=== PATIENT | female | born 1950 | race Caucasian/White ===

== ENCOUNTER 2017-10-24 08:29 | Day surgery (SDC) | payer OTHER ==
[~2017-10-24 08:29] MED LIST: BETAMET ACET/BETAMET NA PH 30 MG/5 ML VIAL IM ONE; BUPIVACAINE HCL/PF 0.25% (2.5MG/ML) 10 ML VIAL IJ ONE; IOHEXOL 180 MG/1 ML ML IJ ONE; LIDOCAINE HCL 1%, 10 MG/ML (20ML VIAL) INF ONE
[2017-10-24] MEDS ORDERED: BUPIVACAINE HCL/PF 0.25% (2.5MG/ML) 10 ML VIAL ONE (09:28)
[2017-10-24] MEDS ORDERED: LIDOCAINE HCL 1%, 10 MG/ML (20ML VIAL) ONE (09:28)
[2017-10-24] MEDS ORDERED: BETAMET ACET/BETAMET NA PH 30 MG/5 ML VIAL ONE (09:28)
[2017-10-24 10:37] VITALS: TEMP 98.3
[2017-10-24] MEDS ORDERED: PROPOFOL 20 ML ONE ×2 (11:18)
[2017-10-24] MEDS ORDERED: MIDAZOLAM HCL 2 MG/2 ML SINGLE DOSE VIAL ONE (11:18)
[2017-10-24] MEDS ORDERED: LIDOCAINE HCL 1%, 10 MG/ML (20ML VIAL) INF ONE (11:25)
[2017-10-24] MEDS ORDERED: IOHEXOL 180 MG/1 ML ML IJ ONE (11:27)
[2017-10-24] MEDS ORDERED: BUPIVACAINE HCL/PF 0.25% (2.5MG/ML) 10 ML VIAL IJ ONE (11:30)
[2017-10-24] MEDS ORDERED: BETAMET ACET/BETAMET NA PH 30 MG/5 ML VIAL IM ONE (11:30)
[2017-10-24 13:21] VITALS: BP 135/77; PULSE 89
--- NOTE | 2017-11-18 10:04 | PROC ---
Procedure Note Procedure: Date of service: 10/24/2017 Preoperative Diagnosis: Low back pain and lumbar radiculopathy on right Postoperative Diagnosis: Same Procedure Performed: Lumbar Epidural Steroid Injection (LESI) on Right L5-S1 with dye under Fluoroscopy Anesthesia: Local / MAC Anesthesiologist: Procedure: I discussed with the patient in detail about the risks, benefits, and alternatives to treatment not only limited to infection, headache, numbness , weakness, and injury to nerves, blood vessels and muscles. The patient understood, agreed and signed the written consent. The patient was placed in the prone position with the head, abdomen and legs supported with the pillows. The lumbosacral area was prepped and draped with Betadine times three in a sterile fashion. Lumbar vertebrae were identified under the C-arm. At L5-S1 level on the right side, 3 ml of 1 % Lidocaine was infiltrated into the skin and subcutaneous tissue. A 3 inch, #20 gauge Tuohy needle was advanced to the epidural space with loss of resistance technique under fluoroscopic guidance. Aspiration was negative for cerebrospinal fluid and blood. 2ml of Omnipaque ( radio-opaque dye) was injected to confirm the tip of the needle into epidural space and spread of dye. There was no CSF or vascular spread. The spread of dye was noted cranially and caudally on epidurogram. Aspiration was done again which was negative. A solution of 2.5 ml of Celestone and 2.5 ml of 0.25% Marcaine and 2 ml of preservative-free Normal Saline and a total of 5 ml was injected slowly. While Tuohy needle was withdrawn 2.0 ml of 1 % Lidocaine was infiltrated. Bleeding was checked. Betadine was wiped off. A sterile bandage was placed. The patient tolerated the procedure well. There were no immediate complications. The patient was transferred to the recovery room. The patient was observed for some time and discharged as per ASU criteria. The patient was told to apply ice at the injection site. Follow up appointment was given and also call my office at [phone]. If there is any problem, call my office or report to Emergency Room. Efra Wilkins M.D.
== END 2017-10-24 13:23 | disposition home or self-care (01) ==
LOC: JASU-SURG 08:29 → JASU-ENDO 08:29 → JASU-SURG 13:23
PROVIDERS: ATTEND Physical Medicine & Rehabilitation
PROC: 3E0R33Z Introduction of Anti-inflammatory into Spinal Canal, Percutaneous Approach (ICD-10-PCS; 2017-10-24)
PROC: B01BYZZ Fluoroscopy of Spinal Cord using Other Contrast (ICD-10-PCS; 2017-10-24)
PROC: 3E0R3BZ Introduction of Anesthetic Agent into Spinal Canal, Percutaneous Approach (ICD-10-PCS; principal; 2017-10-24 09:30)
DX: M54.16 Radiculopathy, lumbar region (principal); M54.5 Low back pain
CPT/HCPCS: 72148-TC; 76000-TC-FY

== ENCOUNTER 2017-11-17 07:08 | Day surgery (SDC) | payer OTHER ==
[2017-11-16 14:40] VITALS: BMI 36.0
[2017-11-17] MEDS ORDERED: PROPOFOL 20 ML ONE ×3 (08:02)
[2017-11-17] MEDS ORDERED: LIDOCAINE HCL/PF 1% SDV 5ML VIAL ONE (08:03)
[2017-11-17 09:16] VITALS: TEMP 97.8
[2017-11-17 14:09] VITALS: BP 119/61; PULSE 88
== END 2017-11-17 11:45 | disposition home or self-care (01) ==
LOC: JASU-ENDO 07:08
PROVIDERS: ATTEND Internal Medicine Gastroenterology
PROC: 0DBM8ZX Excision of Descending Colon, Via Natural or Artificial Opening Endoscopic, Diagnostic (ICD-10-PCS; principal; 2017-11-17 08:00)
DX: Z11.1 Encounter for screening for respiratory tuberculosis (principal); Z80.0 Family history of malignant neoplasm of digestive organs; Z53.8 Procedure and treatment not carried out for other reasons
CPT/HCPCS: 74270-TC-FY; 87045; 87046; 87177; 87209; 88305-TC

== ENCOUNTER 2017-12-26 07:11 | Day surgery (SDC) | payer OTHER ==
[2017-12-06 18:02] VITALS: BMI 36.0
[2017-12-26] MEDS ORDERED: ePHEDrine SULFATE 50 MG/1 ML AMPULE ONE (07:18)
[2017-12-26] MEDS ORDERED: PROPOFOL 20 ML ONE ×10 (07:19)
[2017-12-26] MEDS ORDERED: SUCCINYLCHOLINE CHLORIDE 200 MG/10 ML VIAL ONE (07:19)
[2017-12-26] MEDS ORDERED: LIDOCAINE HCL 1%, 10 MG/ML (20ML VIAL) ONE (07:33)
[2017-12-26] MEDS ORDERED: BETAMET ACET/BETAMET NA PH 30 MG/5 ML VIAL ONE (07:34)
[2017-12-26] MEDS ORDERED: BUPIVACAINE HCL/PF 0.25% (2.5MG/ML) 10 ML VIAL ONE (07:34)
[2017-12-26 07:41] VITALS: TEMP 97.7
[2017-12-26] MEDS ORDERED: LIDOCAINE HCL 1%, 10 MG/ML (20ML VIAL) NR ONE (08:41)
[2017-12-26] MEDS ORDERED: IOHEXOL 180 MG/1 ML ML IJ ONE ×2 (08:44)
[2017-12-26] MEDS ORDERED: BETAMET ACET/BETAMET NA PH 30 MG/5 ML VIAL IJ ONE ×2 (08:44)
[2017-12-26] MEDS ORDERED: BUPIVACAINE HCL/PF 0.25% (2.5MG/ML) 10 ML VIAL IJ ONE ×2 (08:44)
[2017-12-26 11:17] VITALS: BP 126/72; PULSE 93
--- NOTE | 2017-12-27 21:39 | PROC ---
Procedure Note Procedure: Date of service: 12/26/2017 Preoperative Diagnosis: Low back pain and lumbar radiculopathy on Left, Lumbar facet arthropathy. Postoperative Diagnosis: Same Procedure Performed: Lumbar Epidural Steroid Injection (LESI) on Left L4-5 and left L4-S1 facet intra-articular injection. with dye under Fluoroscopy Anesthesia: Local / MAC Anesthesiologist: Procedure: I discussed with the patient in detail about the risks, benefits, and alternatives to treatment not only limited to infection, headache, numbness , weakness, and injury to nerves, blood vessels and muscles. The patient understood, agreed and signed the written consent. The patient was placed in the prone position with the head, abdomen and legs supported with the pillows. The lumbosacral area was prepped and draped with Betadine times three in a sterile fashion. Lumbar vertebrae were identified under the C-arm. At L4-5 level on the Left side, 3 ml of 1 % Lidocaine was infiltrated into the skin and subcutaneous tissue. A 3 inch, #20 gauge Tuohy needle was advanced to the epidural space with loss of resistance technique under fluoroscopic guidance. Aspiration was negative for cerebrospinal fluid and blood. 2ml of Omnipaque ( radio-opaque dye) was injected to confirm the tip of the needle into epidural space and spread of dye. There was no CSF or vascular spread. The spread of dye was noted cranially and caudally on epidurogram. Aspiration was done again which was negative. A solution of 2.5 ml of Celestone, 3.5 ml of 0.25% Marcaine and a total of 4 ml was injected slowly. While Tuohy needle was withdrawn 2.0 ml of 1 % Lidocaine was infiltrated. Left intra-articular L4-5 amd L5-S1 with 1 ml each of solution was done after confirming the placement of needle with contrast both in AP and oblique views. Bleeding was checked. Betadine was wiped off. A sterile bandage was placed. The patient tolerated the procedure well. There were no immediate complications. The patient was transferred to the recovery room. The patient was observed for some time and discharged as per ASU criteria. The patient was told to apply ice at the injection site. Follow up appointment was given and also call my office at [phone]. If there is any problem, call my office or report to Emergency Room. Efra Wilkins M.D.
== END 2017-12-26 11:00 | disposition home or self-care (01) ==
LOC: JASU-SURG 07:11
PROVIDERS: ATTEND Physical Medicine & Rehabilitation
PROC: 3E0R3BZ Introduction of Anesthetic Agent into Spinal Canal, Percutaneous Approach (ICD-10-PCS; 2017-12-26)
PROC: B01BYZZ Fluoroscopy of Spinal Cord using Other Contrast (ICD-10-PCS; 2017-12-26)
PROC: 3E0R33Z Introduction of Anti-inflammatory into Spinal Canal, Percutaneous Approach (ICD-10-PCS; principal; 2017-12-26 08:00)
DX: M54.16 Radiculopathy, lumbar region (principal); M54.5 Low back pain; M12.88 Other specific arthropathies, not elsewhere classified, other specified site
CPT/HCPCS: 76000-TC-FY

== ENCOUNTER 2018-06-14 07:48 | Day surgery (SDC) | payer OTHER ==
[2018-06-13 16:55] VITALS: BMI 30.5
[2018-06-14] MEDS ORDERED: BUPIVACAINE HCL/PF 0.25% (2.5MG/ML) 10 ML VIAL ONE (08:52)
[2018-06-14] MEDS ORDERED: BUPIVACAINE HCL/PF 0.5% (5MG/ML) 10 ML VIAL ONE (08:52)
[2018-06-14] MEDS ORDERED: LIDOCAINE HCL 1%, 10 MG/ML (20ML VIAL) ONE (08:52)
[2018-06-14 09:03] LABS: HEMATOCRIT 39.9 % (32.4-45.2); HEMOGLOBIN 14.4 GM/dL (10.7-15.3); MCHC 36.1 g/dl (32.0-36.0); MEAN CELL VOLUME 83.2 fl (80-96); MEAN PLT VOLUME 7.4 fl (7.5-11.1); PLATELET COUNT 243 K/MM3 (134-434); RBC 4.79 M/mm3 (3.60-5.2); WHITE BLOOD COUNT 6.4 K/mm3 (4.0-10.0)
[2018-06-14] MEDS ORDERED: PROPOFOL 20 ML ONE (09:16)
[2018-06-14] MEDS ORDERED: LIDOCAINE HCL/PF 2% SDV 5ML VIAL ONE (09:17)
[2018-06-14] MEDS ORDERED: LIDOCAINE HCL 1%, 10 MG/ML (50 mL VIAL) IJ ONE ×2 (09:31→09:33)
[2018-06-14] MEDS ORDERED: BUPIVACAINE HCL/PF 0.25% (2.5MG/ML) 10 ML VIAL IJ ONE ×2 (09:31→09:36)
[2018-06-14] MEDS ORDERED: IOHEXOL 180 MG/1 ML ML IJ ONE ×2 (09:31→09:35)
[2018-06-14] MEDS ORDERED: BETAMET ACET/BETAMET NA PH 30 MG/5 ML VIAL IJ ONE ×2 (09:32→09:36)
[2018-06-14 09:38] LABS: ALBUMIN 3.8 g/dl (3.4-5.0); ALK PHOS 79 U/L (45-117); ANION GAP 8 MMOL/L (8-16); BILIRUBIN,DIRECT 0.2 mg/dL (0.0-0.2); BILIRUBIN,TOTAL 0.9 mg/dL (0.2-1); BLOOD UREA NITROGEN 17 mg/dL (7-18); CALCIUM 8.7 mg/dL (8.5-10.1); CHLORIDE 107 mmol/L (98-107); CHOLESTEROL 190 mg/dL (50-200); CO2 25 mmol/L (21-32); CREATININE 0.7 mg/dL (0.55-1.3); GLUCOSE,RANDOM 109 mg/dL (74-106); HDL CHOLESTEROL 38 mg/dL (40-60); SGOT/AST 20 U/L (15-37); SGPT/ALT 33 U/L (13-61); SODIUM 139 mmol/L (136-145); TRIGLYCERIDES 208 mg/dL (0-150)
--- NOTE | 2018-06-14 10:11 | PROC ---
Procedure Note Procedure: Date of service:06/14/2018 Preoperative Diagnosis: Low back pain and lumbar radiculopathy on Left Postoperative Diagnosis: Same Procedure Performed: Lumbar Epidural Steroid Injection (LESI) on Left L4-5 with dye under Fluoroscopy Anesthesia: Local / MAC Anesthesiologist: Procedure: I discussed with the patient in detail about the risks, benefits, and alternatives to treatment not only limited to infection, headache, numbness , weakness, and injury to nerves, blood vessels and muscles. The patient understood, agreed and signed the written consent. The patient was placed in the prone position with the head, abdomen and legs supported with the pillows. The lumbosacral area was prepped and draped with Betadine times three in a sterile fashion. Lumbar vertebrae were identified under the C-arm. At L4-5level on the Left side, 3 ml of 1 % Lidocaine was infiltrated into the skin and subcutaneous tissue. A 3 inch, #20 gauge Tuohy needle was advanced to the epidural space with loss of resistance technique under fluoroscopic guidance. Aspiration was negative for cerebrospinal fluid and blood. 2ml of Omnipaque ( radio-opaque dye) was injected to confirm the tip of the needle into epidural space and spread of dye. There was no CSF or vascular spread. The spread of dye was noted cranially and caudally on epidurogram. Aspiration was done again which was negative. A solution of 2.5 ml of Celestone ,and 2.5 ml of 0.25% Marcaine and a total of 5 ml was injected slowly. While Tuohy needle was withdrawn 2.0 ml of 1 % Lidocaine was infiltrated. Bleeding was checked. Betadine was wiped off. A sterile bandage was placed. The patient tolerated the procedure well. There were no immediate complications. The patient was transferred to the recovery room. The patient was observed for some time and discharged as per ASU criteria. The patient was told to apply ice at the injection site. Follow up appointment was given and also call my office at . If there is any problem, call my office or report to Emergency Room. Efra Wilkins M.D.
[2018-06-14 10:37] VITALS: BP 122/69; PULSE 81; TEMP 97.9
== END 2018-06-14 10:20 | disposition home or self-care (01) ==
LOC: JASU-SURG 07:48
PROVIDERS: ATTEND Physical Medicine & Rehabilitation
PROC: 3E0R33Z Introduction of Anti-inflammatory into Spinal Canal, Percutaneous Approach (ICD-10-PCS; 2018-06-14)
PROC: B01BYZZ Fluoroscopy of Spinal Cord using Other Contrast (ICD-10-PCS; 2018-06-14)
PROC: 3E0R3BZ Introduction of Anesthetic Agent into Spinal Canal, Percutaneous Approach (ICD-10-PCS; principal; 2018-06-14 09:00)
DX: M54.16 Radiculopathy, lumbar region (principal); M54.5 Low back pain
CPT/HCPCS: 36415; 76000-TC-FY; 80053; 80061; 80076; 83721; 85027

== ENCOUNTER 2018-08-28 08:26 | Day surgery (SDC) | payer OTHER ==
[2018-08-27 08:16] VITALS: BMI 30.5
[2018-08-28 09:01] VITALS: TEMP 97.7
[2018-08-28] MEDS ORDERED: LIDOCAINE HCL 1%, 10 MG/ML (20ML VIAL) INF ONE (11:48)
[2018-08-28] MEDS ORDERED: BUPIVACAINE HCL/PF 0.25% (2.5MG/ML) 10 ML VIAL IJ ONE (11:48)
[2018-08-28] MEDS ORDERED: BETAMET ACET/BETAMET NA PH 30 MG/5 ML VIAL IM ONE (11:49)
[2018-08-28 14:12] VITALS: BP 132/78; PULSE 82
--- NOTE | 2018-08-29 05:35 | PROC ---
Procedure Note Procedure: Date of service: 08/28/2018 Preoperative Diagnosis: Low back pain and lumbar radiculopathy on Left Postoperative Diagnosis: Same Procedure Performed: Lumbar Epidural Steroid Injection (LESI) on Left L5-S1 with dye under Fluoroscopy Anesthesia: Local / MAC Anesthesiologist: Procedure: I discussed with the patient in detail about the risks, benefits, and alternatives to treatment not only limited to infection, headache, numbness , weakness, and injury to nerves, blood vessels and muscles. The patient understood, agreed and signed the written consent. The patient was placed in the prone position with the head, abdomen and legs supported with the pillows. The lumbosacral area was prepped and draped with Betadine times three in a sterile fashion. Lumbar vertebrae were identified under the C-arm. At L5-S1 level on the Left side, 3 ml of 1 % Lidocaine was infiltrated into the skin and subcutaneous tissue. A 3 inch, #20 gauge Tuohy needle was advanced to the epidural space with loss of resistance technique under fluoroscopic guidance. Aspiration was negative for cerebrospinal fluid and blood. 2ml of Omnipaque ( radio-opaque dye) was injected to confirm the tip of the needle into epidural space and spread of dye. There was no CSF or vascular spread. The spread of dye was noted cranially and caudally on epidurogram. Aspiration was done again which was negative. A solution of 2.5 ml of Celestone 2.5 ml of 0.25% Marcaine and a total of 5 ml was injected slowly. While Tuohy needle was withdrawn 2.0 ml of 1 % Lidocaine was infiltrated. Bleeding was checked. Betadine was wiped off. A sterile bandage was placed. The patient tolerated the procedure well. There were no immediate complications. The patient was transferred to the recovery room. The patient was observed for some time and discharged as per ASU criteria. The patient was told to apply ice at the injection site. Follow up appointment was given and also call my office at [phone]. If there is any problem, call my office or report to Emergency Room. Efra Wilkins M.D.
== END 2018-08-28 14:00 | disposition home or self-care (01) ==
LOC: JASU-SURG 08:26
PROVIDERS: ATTEND Physical Medicine & Rehabilitation
PROC: 3E0R3BZ Introduction of Anesthetic Agent into Spinal Canal, Percutaneous Approach (ICD-10-PCS; 2018-08-28)
PROC: B01BYZZ Fluoroscopy of Spinal Cord using Other Contrast (ICD-10-PCS; 2018-08-28)
PROC: 3E0R33Z Introduction of Anti-inflammatory into Spinal Canal, Percutaneous Approach (ICD-10-PCS; principal; 2018-08-28 11:00)
DX: M54.17 Radiculopathy, lumbosacral region (principal); M54.5 Low back pain

== ENCOUNTER 2019-05-06 06:44 | Day surgery (SDC) | payer OTHER ==
[2019-05-06] MEDS ORDERED: BUPIVACAINE HCL/PF 0.25% (2.5MG/ML) 10 ML VIAL ONE (07:12)
[2019-05-06] MEDS ORDERED: LIDOCAINE HCL 1%, 10 MG/ML (20ML VIAL) ONE (07:12)
[2019-05-06] MEDS ORDERED: BETAMET ACET/BETAMET NA PH 30 MG/5 ML VIAL ONE (07:12)
[2019-05-06 07:18] VITALS: BMI 28.2
[2019-05-06] MEDS ORDERED: SUCCINYLCHOLINE CHLORIDE 200 MG/10 ML SYRINGE ONE (08:18)
[2019-05-06] MEDS ORDERED: MIDAZOLAM HCL 2 MG/2 ML SINGLE DOSE VIAL ONE (08:18)
[2019-05-06] MEDS ORDERED: PROPOFOL 20 ML ONE ×3 (08:19)
[2019-05-06] MEDS ORDERED: EPHEDRINE SULFATE/0.9% NACL/PF 50 MG/10 ML SYRINGE NR ONE (08:19)
[2019-05-06] MEDS ORDERED: LIDOCAINE HCL/PF 2% SDV 5ML VIAL ONE (08:43)
[2019-05-06] MEDS ORDERED: LIDOCAINE HCL 1%, 10 MG/ML (20ML VIAL) NR ONE (08:51)
[2019-05-06] MEDS ORDERED: BUPIVACAINE HCL/PF 0.25% (2.5MG/ML) 10 ML VIAL IJ ONE (08:51)
[2019-05-06] MEDS ORDERED: BETAMET ACET/BETAMET NA PH 30 MG/5 ML VIAL IJ ONE (08:51)
[2019-05-06] MEDS ORDERED: IOHEXOL 180 MG/1 ML ML IJ ONE ×2 (08:51)
[2019-05-06] MEDS ORDERED: oxyCODONE HCL 5 MG TABLET PO PRN ×2 (09:32)
[2019-05-06] MEDS ORDERED: ONDANSETRON 4 MG/2 ML VIAL IVPUSH PRN (09:32)
[2019-05-06] MEDS ORDERED: ACETAMINOPHEN 325 MG TABLET (FP) PO PRN (09:32)
[2019-05-06 12:28] VITALS: BP 136/98; PULSE 96; TEMP 98.1
--- NOTE | 2019-05-13 09:32 | PROC ---
Procedure Note Procedure: Date of service: 05/07/2019 Preoperative Diagnosis: Low back pain and lumbar radiculopathy on Left Postoperative Diagnosis: Same Procedure Performed: Lumbar Epidural Steroid Injection (LESI) on Left L4-5 and Lumbar Facet Block Left L3-S1 with dye under Fluoroscopy Anesthesia: Local / MAC Anesthesiologist: Procedure: I discussed with the patient in detail about the risks, benefits, and alternatives to treatment not only limited to infection, headache, numbness , weakness, and injury to nerves, blood vessels and muscles. The patient understood, agreed and signed the written consent. The patient was placed in the prone position with the head, abdomen and legs supported with the pillows. The lumbosacral area was prepped and draped with Betadine times three in a sterile fashion. Lumbar vertebrae were identified under the C-arm. At L5-S1 level on the Left side, 3 ml of 1 % Lidocaine was infiltrated into the skin and subcutaneous tissue. A 3 inch, #20 gauge Tuohy needle was advanced to the epidural space with loss of resistance technique under fluoroscopic guidance. Aspiration was negative for cerebrospinal fluid and blood. 2ml of Omnipaque ( radio-opaque dye) was injected to confirm the tip of the needle into epidural space and spread of dye. There was no CSF or vascular spread. The spread of dye was noted cranially and caudally on epidurogram. Aspiration was done again which was negative. A solution of 2.5 ml of Celestone 2.5 ml of 0.25% Marcaine and a total of 5 ml was injected slowly. While Tuohy needle was withdrawn 2.0 ml of 1 % Lidocaine was infiltrated. Bleeding was checked. Lumbar Facet Block was done at L3- S1 level with 0.5 ml of 0.5% Marcaine at each level. Betadine was wiped off. A sterile bandage was placed. The patient tolerated the procedure well. There were no immediate complications. The patient was transferred to the recovery room. The patient was observed for some time and discharged as per ASU criteria. The patient was told to apply ice at the injection site. Follow up appointment was given and also call my office at . If there is any problem, call my office or report to Emergency Room. Efra Wilkins M.D.
== END 2019-05-06 12:32 | disposition home or self-care (01) ==
LOC: JASU-SURG 06:44
PROVIDERS: ATTEND Physical Medicine & Rehabilitation
PROC: 3E0T3BZ Introduction of Anesthetic Agent into Peripheral Nerves and Plexi, Percutaneous Approach (ICD-10-PCS; principal; 2019-05-06 08:00)
PROC: 3E0T33Z Introduction of Anti-inflammatory into Peripheral Nerves and Plexi, Percutaneous Approach (ICD-10-PCS; 2019-05-06 08:00)
DX: M54.17 Radiculopathy, lumbosacral region (principal); M54.5 Low back pain; M46.97 Unspecified inflammatory spondylopathy, lumbosacral region
CPT/HCPCS: 76000-TC-FY

== ENCOUNTER 2019-06-14 06:51 | Day surgery (SDC) | payer OTHER ==
[2019-06-13 07:03] VITALS: BMI 28.2
[2019-06-14] MEDS ORDERED: BETAMET ACET/BETAMET NA PH 30 MG/5 ML VIAL ONE (07:10)
[2019-06-14] MEDS ORDERED: LIDOCAINE HCL 1%, 10 MG/ML (20ML VIAL) ONE (07:10)
[2019-06-14] MEDS ORDERED: BUPIVACAINE HCL/PF 0.25% (2.5MG/ML) 10 ML VIAL ONE (07:10)
[2019-06-14] MEDS ORDERED: PROPOFOL 20 ML ONE ×2 (07:26→08:34)
[2019-06-14] MEDS ORDERED: MIDAZOLAM HCL 2 MG/2 ML SINGLE DOSE VIAL ONE (07:27)
[2019-06-14 07:36] VITALS: TEMP 98
[2019-06-14] MEDS ORDERED: LIDOCAINE HCL 1%, 10 MG/ML (50 mL VIAL) IJ ONE (08:43)
[2019-06-14] MEDS ORDERED: BUPIVACAINE HCL/PF 0.5% (5MG/ML) 10 ML VIAL IJ ONE (08:43)
[2019-06-14] MEDS ORDERED: IOHEXOL 180 MG/1 ML ML IJ ONE (08:46)
[2019-06-14] MEDS ORDERED: BETAMET ACET/BETAMET NA PH 30 MG/5 ML VIAL IJ ONE (08:46)
[2019-06-14 12:03] VITALS: BP 136/76; PULSE 85
--- NOTE | 2019-06-19 23:27 | PROC ---
Procedure Note Procedure: Date of service: 06/14/2019 Preoperative Diagnosis: Low back pain and lumbar radiculopathy and Lumbar Facet Arthropathy on Left Postoperative Diagnosis: Same Procedure Performed: Lumbar Epidural Steroid Injection (LESI) on Left L4-5 aand Intra-articular steroid injection Left L3-S1 with dye under Fluoroscopy Anesthesia: Local / MAC Anesthesiologist: Procedure: I discussed with the patient in detail about the risks, benefits and alternatives to treatment not only limited to infection, headache, numbness, weakness and injury to nerves, blood vessels and muscles. The patient understood , agreed and signed the written consent. The patient was placed in the prone position with the head, abdomen and legs supported with the pillows. The lumbosacral area was prepped and draped with Chlor prep in a sterile fashion. Lumbar vertebrae were identified under the C-arm. At L4-5 level on the Left side, 3 ml of 1% Lidocaine was infiltrated into the skin and subcutaneous tissue. A 3 inch, #20 gauge Tuohy needle was advanced to the epidural space with loss of resistance technique under fluoroscopic guidance. Aspiration was negative for cerebrospinal fluid and blood. 2ml of Omnipaque (radio opaque dye) was injected to confirm the tip of needle into epidural space and spread of dye. There was no CSF or vascular spread. The spread of dye was noted cranially and caudally on epidurogram. Aspiration was done again which was negative. A solution of 1 ml of Celestone 2.5 ml of 0.25% Marcaine and 2.5 ml of preservative-free and a total of 5 mlwas injected slowly. While Tuohy needle was withdrawn 2.0 ml of 1% Lidocaine was infiltrated. Intra-articular steroid injection with Celestone mixed with 0.5 % was done under fluroscopy gudance at L3-S1 Levels. Bleeding was checked. Betadine was wiped off. A sterile bandage was placed. The patient tolerated the procedure well. There were no immediate complications. The patient was transferred to the recovery room. The patient was observed for some time and discharged with a family member. The patient was told to apply ice at the injection site. If there is any problem, call my office or report to [facility]. Efra Wilkins M.D. CPT : [id number]/ [id number] on Left .
== END 2019-06-14 11:30 | disposition home or self-care (01) ==
LOC: JASU-SURG 06:51
PROVIDERS: ATTEND Physical Medicine & Rehabilitation
PROC: 3E0R33Z Introduction of Anti-inflammatory into Spinal Canal, Percutaneous Approach (ICD-10-PCS; 2019-06-14)
PROC: B01BYZZ Fluoroscopy of Spinal Cord using Other Contrast (ICD-10-PCS; 2019-06-14)
PROC: 3E0R3BZ Introduction of Anesthetic Agent into Spinal Canal, Percutaneous Approach (ICD-10-PCS; principal; 2019-06-14 08:00)
DX: M46.96 Unspecified inflammatory spondylopathy, lumbar region (principal); M54.5 Low back pain; M54.16 Radiculopathy, lumbar region
CPT/HCPCS: 76000-TC-FY

== ENCOUNTER 2019-12-10 13:11 | Day surgery (SDC) | payer OTHER ==
[2019-12-09 10:18] VITALS: BMI 28.2
[2019-12-10 13:38] VITALS: TEMP 96.9
[2019-12-10] MEDS ORDERED: methylPREDNISolone ACET (DEPO) 40 MG/1 ML VIAL ONE (14:58)
[2019-12-10] MEDS ORDERED: LIDOCAINE HCL 1%, 10 MG/ML (20ML VIAL) ONE ×2 (14:58→14:59)
[2019-12-10] MEDS ORDERED: BUPIVACAINE HCL/PF 0.25% (2.5MG/ML) 10 ML VIAL ONE (14:58)
[2019-12-10] MEDS ORDERED: BETAMET ACET/BETAMET NA PH 30 MG/5 ML VIAL ONE (14:58)
[2019-12-10] MEDS ORDERED: PROPOFOL 20 ML ONE (15:18)
[2019-12-10] MEDS ORDERED: LIDOCAINE HCL/PF 2% SDV 5ML VIAL ONE (15:18)
[2019-12-10] MEDS ORDERED: BUPIVACAINE HCL/PF 0.25% (2.5MG/ML) 10 ML VIAL IJ ONE (15:28)
[2019-12-10] MEDS ORDERED: LIDOCAINE HCL 1%, 10 MG/ML (20ML VIAL) INF ONE (15:30)
[2019-12-10] MEDS ORDERED: IOHEXOL 180 MG/1 ML ML IJ ONE (15:30)
[2019-12-10 16:39] VITALS: BP 100/60; PULSE 96
--- NOTE | 2019-12-16 00:43 | PROC ---
Procedure Note Procedure: Date: 12/10/2019 Name of the patient: Minnie Crum Preoperative Diagnosis: Low Back pain and Lumbar radiculopathy Postoperative Diagnosis: Same Procedure Performed: Lumbar Epidural steroid injection Transforaminal L4 and L5 on Left Anesthesia: Local / MAC Procedure: I discussed with the patient in detail about the risks, benefits and alternatives to treatment not only limited to infection, headache, numbness, weakness and injury to nerves, blood vessels and muscles. The patient understood, agreed and signed the written consent. The patient was placed in the prone position with the head, abdomen and legs supported with the pillows. The lumbosacral area was prepped and draped with Betadine times three in a sterile fashion. The Left oblique view under the C-arm at L5- S1 level, with a #25 G, 1- 1/2 needle 3 ml of 1% Lidocaine was infiltrated in the skin and subcutaneous tissue. A spinal needle was used to approach epidural space via transforaminal approach with intermittent fluoroscopy in both AP and oblique views. After negative aspiration of blood and CSF, omnipaque (radio opaque dye) was used to confirm the spread of dye in epidural space. A solution containing 1 ml of Dexamethasone 10 mg and 1.5 ml of Marcaine 0.25% total volume 4 ml was prepared, 2 ml was injected into the left L5-S1 level. While the needle was withdrawn, 1 ml of Lidocaine was infiltrated. Similar procedure was repeated at Left L4-5 level. Bleeding was checked.Betadine was wiped off. A sterile bandage was placed. The patient tolerated the procedure well. There were no immediate complications. The patient was transferred to the recovery room. The patient was observed for some time and discharged with a family member as per ASC criteria . The patient was told to apply ice at the injection site. If there is any problem, call my office or report to ER. . Efra Wilkins M.D.
== END 2019-12-10 16:30 | disposition home or self-care (01) ==
LOC: JASU-SURG 13:11
PROVIDERS: ATTEND Physical Medicine & Rehabilitation
PROC: 3E0R33Z Introduction of Anti-inflammatory into Spinal Canal, Percutaneous Approach (ICD-10-PCS; 2019-12-10)
PROC: 3E0R3BZ Introduction of Anesthetic Agent into Spinal Canal, Percutaneous Approach (ICD-10-PCS; principal; 2019-12-10 15:00)
DX: M54.16 Radiculopathy, lumbar region (principal); M54.5 Low back pain
CPT/HCPCS: 76000-TC-FY

== ENCOUNTER 2019-12-26 09:40 | Day surgery (SDC) | payer OTHER ==
[2019-12-25 14:23] VITALS: BMI 31.4
[2019-12-26] MEDS ORDERED: BETAMET ACET/BETAMET NA PH 30 MG/5 ML VIAL ONE (09:44)
[2019-12-26] MEDS ORDERED: LIDOCAINE HCL 1%, 10 MG/ML (20ML VIAL) ONE (09:44)
[2019-12-26] MEDS ORDERED: BUPIVACAINE HCL/PF 0.25% (2.5MG/ML) 10 ML VIAL ONE (09:45)
[2019-12-26] MEDS ORDERED: PROPOFOL 20 ML ONE ×2 (11:05→11:24)
[2019-12-26] MEDS ORDERED: BUPIVACAINE HCL/PF 0.5% (5 MG/ML) 30 ML VIAL IJ ONE (11:18)
[2019-12-26] MEDS ORDERED: LIDOCAINE HCL 1%, 10 MG/ML (20ML VIAL) NR ONE (11:19)
[2019-12-26] MEDS ORDERED: BETAMET ACET/BETAMET NA PH 30 MG/5 ML VIAL IM ONE (11:20)
[2019-12-26] MEDS ORDERED: ACETAMINOPHEN 325 MG TABLET (FP) PO PRN (11:44)
[2019-12-26] MEDS ORDERED: oxyCODONE HCL 5 MG TABLET PO PRN (11:44)
[2019-12-26] MEDS ORDERED: ONDANSETRON 4 MG/2 ML VIAL IVPUSH PRN (11:44)
[2019-12-26] MEDS ORDERED: LACTATED RINGERS SOLUTION 1,000 ML IV SCH (11:45)
[2019-12-26 13:09] VITALS: BP 132/76; PULSE 87; TEMP 97.7
--- NOTE | 2019-12-29 23:48 | PROC ---
Procedure Note Procedure: Date of service: 12/26/2019 Name of the patient: Minnie Crum Preoperative Diagnosis: Lower back pain, Lumbar facet arthropathy Right/ Left Postoperative Diagnosis: Same Procedure Performed: Lumbar facet Medial Branch diagnostic Block at L3-S1 levels Right/ Left Anesthesia: Local / MAC Procedure: I discussed with the patient in detail about the risks, benefits and alternatives to treatment not only limited to infection, headache, numbness, weakness and injury to nerves, spinal cord, blood vessels and muscles. The patient understood, agreed and signed the written consent. The patient was placed in the prone position with the head, abdomen and legs supported with the pillows. The patients lower back was prepped and draped in a sterile fashion. Under C-arm and Scottie dog view eye was identified the L2-3, L3-4 and L4-5 l evels on Left/ Right side. At the level of L3-4 (L3) left Lidocaine was infiltrated into the skin and subcutaneous tissue. A spinal needle was used to approach the eye of the Scottie dog in the oblique view until the tip of the needle contacted the bone with the use of intermittent fluoroscopy. Needle placement was confirmed both in the AP and oblique view. Aspiration was done which was negative for blood. omnipaque was injected to see the spread of the dye. A solution of 0.5 ml of preservative free 0.5% Marcaine was injected at this level. While the needle was withdrawn, Lidocaine was infiltrated. Similar procedure was repeated at left/ Right L4-5 (L4) and L5-S1 (L5) and RT L3-4 level. The patient tolerated the procedure well. Bleeding was checked. There were no immediate complications. The patient was observed and asked about pain level. The patient mentioned that there was improvement was more than 80%. The Patient was discharged as per ASU criteria. The patient was told to apply ic e at the injection sites. If there is any problem, call my office or report to the ER ^ Efra Wilkins M.D.
== END 2019-12-26 13:12 | disposition home or self-care (01) ==
LOC: JASU-SURG 09:40
PROVIDERS: ATTEND Physical Medicine & Rehabilitation
PROC: 3E0T33Z Introduction of Anti-inflammatory into Peripheral Nerves and Plexi, Percutaneous Approach (ICD-10-PCS; 2019-12-26)
PROC: BR16YZZ Fluoroscopy of Lumbar Facet Joint(s) using Other Contrast (ICD-10-PCS; 2019-12-26)
PROC: 3E0T3BZ Introduction of Anesthetic Agent into Peripheral Nerves and Plexi, Percutaneous Approach (ICD-10-PCS; principal; 2019-12-26 09:00)
DX: M47.897 Other spondylosis, lumbosacral region (principal); M54.5 Low back pain
CPT/HCPCS: 76000-TC-FY

== ENCOUNTER 2020-02-11 04:44 | Day surgery (SDC) | payer OTHER ==
[2020-02-07 17:11] VITALS: BMI 31.4
[2020-02-11] MEDS ORDERED: LIDOCAINE HCL 1%, 10 MG/ML (20ML VIAL) ONE (07:26)
[2020-02-11] MEDS ORDERED: BETAMET ACET/BETAMET NA PH 30 MG/5 ML VIAL ONE (07:27)
[2020-02-11] MEDS ORDERED: BUPIVACAINE HCL/PF 0.25% (2.5MG/ML) 10 ML VIAL ONE (07:27)
[2020-02-11] MEDS ORDERED: LIDOCAINE HCL/PF 2% SDV 5ML VIAL ONE (08:44)
[2020-02-11] MEDS ORDERED: PROPOFOL 20 ML ONE ×2 (08:44→08:45)
[2020-02-11] MEDS ORDERED: DEXAMETHASONE SOD PHOSPHATE 4 MG/1 ML VIAL ONE (08:59)
[2020-02-11] MEDS ORDERED: DEXAMETHASONE SOD PHOSPHATE/PF 10 MG/ML SDV ONE (08:59)
[2020-02-11] MEDS ORDERED: MIDAZOLAM HCL 2 MG/2 ML SINGLE DOSE VIAL ONE (09:44)
[2020-02-11] MEDS ORDERED: KETOROLAC TROMETHAMINE 30 MG/1 ML VIAL ONE (09:56)
[2020-02-11] MEDS ORDERED: BETAMET ACET/BETAMET NA PH 30 MG/5 ML VIAL IM ONE (10:10)
[2020-02-11] MEDS ORDERED: BUPIVACAINE HCL/PF 0.5% (5MG/ML) 10 ML VIAL IJ ONE (10:10)
[2020-02-11] MEDS ORDERED: LIDOCAINE HCL 1%, 10 MG/ML (20ML VIAL) ID ONE (10:10)
[2020-02-11 11:00] VITALS: TEMP 98
[2020-02-11 11:44] VITALS: BP 150/68; PULSE 78
--- NOTE | 2020-02-12 05:42 | PROC ---
Procedure Note Procedure: Date: 02/11/2020 Name of the patient: Minnie Crum Preoperative Diagnosis: Lumbar Facet Denervation ( Radiofrequency) Right Postoperative Diagnosis: Same Procedure Performed: Lumbar Facet Denervation ( Radiofrequency) Right L3-S1 in Hospital Anesthesia: Local / MAC Procedure: I discussed risks, benefits and alternative treatment with patient. I explained to about procedure and its complications. Patient understood, agreed and signed the written consent. There was no intermittent change from last visit. Patient was placed in prone position on table. Patients Lumbosacral area was prepped and draped in a sterile fashion. Under fluoroscopy lumbar vertebrae were identified. The skin and subcutaneous tissue was infiltrated with 1% 1 ml Lidocaine with 25G 1 needle Under fluoroscopic guidance a RF needle was advanced to the junction of the superior aspect of Right L4 transverse process and lateral aspect of Right L4 superior articular facet. The needle was then walked over the transverse process and advanced about two to three millimeters along the body of the right L3 medial branch nerve AP and lateral radiograph confirmed the proper needle position. Sensory and motor stimulation were performed which elicited deep local back discomfort, but no evidence of motor stimulation in the gluteal muscles or extremities. 0.5 ml of 0.5% preservative- free Marcaine with Normal saline was injected at this level around the tip of the needle. The medial branch nerve ablation was performed for 90 seconds at 80 degrees Celsius without any complication. A solution containing Celestone mixed with 0.5% Marcaine total volume 3 ml was prepared. 1 ml of this solution injected at this level. A Similar procedure was performed on Right L4 medial branch without any complication and also on right L5 dorsal ramus. Bleeding was checked and Betadine was wiped off. Sterile bandages were placed. Patient was brought to the Recovery Room. Patient was observed for some time. Patient has no pain. Patient was allowed to ambulate and do the activities,which were causing pain. There was no subjective or objective loss of motor strength or sensation. The patient was informed to follow-up within a week. The patient was also told to apply ice at the injection site and if there is any problem call my office or report to the Emergency Room. The patient was discharged as per ASC criteria. Efra Wilkins M.D.
== END 2020-02-11 11:35 | disposition home or self-care (01) ==
LOC: JASU-SURG 04:44
PROVIDERS: ATTEND Physical Medicine & Rehabilitation
PROC: BR16YZZ Fluoroscopy of Lumbar Facet Joint(s) using Other Contrast (ICD-10-PCS; 2020-02-11)
PROC: 3E0T3TZ Introduction of Destructive Agent into Peripheral Nerves and Plexi, Percutaneous Approach (ICD-10-PCS; principal; 2020-02-11 09:00)
DX: M47.817 Spondylosis without myelopathy or radiculopathy, lumbosacral region (principal)
CPT/HCPCS: 76000-TC-FY

== ENCOUNTER 2020-05-19 05:29 | Day surgery (SDC) | payer OTHER ==
[2020-05-18 11:52] VITALS: BMI 31.4
[2020-05-19] MEDS ORDERED: LIDOCAINE HCL 1%, 10 MG/ML (20ML VIAL) ONE (07:12)
[2020-05-19] MEDS ORDERED: methylPREDNISolone ACET (DEPO) 40 MG/1 ML VIAL ONE (07:12)
[2020-05-19] MEDS ORDERED: BETAMET ACET/BETAMET NA PH 30 MG/5 ML VIAL ONE (07:13)
[2020-05-19] MEDS ORDERED: BUPIVACAINE HCL/PF 0.25% (2.5MG/ML) 10 ML VIAL ONE (07:13)
[2020-05-19] MEDS ORDERED: PROPOFOL 20 ML ONE ×2 (09:03)
[2020-05-19] MEDS ORDERED: LIDOCAINE HCL/PF 2% SDV 5ML VIAL ONE (09:03)
[2020-05-19] MEDS ORDERED: TRIAMCINOLONE ACET 40MG/1ML VIAL ONE (09:35)
[2020-05-19] MEDS ORDERED: KETOROLAC TROMETHAMINE 30 MG/1 ML VIAL ONE (09:37)
[2020-05-19] MEDS ORDERED: LIDOCAINE HCL 1%, 10 MG/ML (50 mL VIAL) IJ ONE (09:46)
[2020-05-19] MEDS ORDERED: BETAMET ACET/BETAMET NA PH 30 MG/5 ML VIAL IJ ONE (09:47)
[2020-05-19] MEDS ORDERED: BUPIVACAINE HCL/PF 0.25% (2.5MG/ML) 10 ML VIAL IJ ONE (09:47)
[2020-05-19] MEDS ORDERED: IOHEXOL 180 MG/1 ML ML IJ ONE (09:47)
[2020-05-19 10:07] VITALS: TEMP 97.8
[2020-05-19 13:45] VITALS: BP 131/79; PULSE 81
== END 2020-05-19 12:45 | disposition home or self-care (01) ==
LOC: JASU-SURG 05:29
PROVIDERS: ATTEND Physical Medicine & Rehabilitation
PROC: 3E0U3BZ Introduction of Anesthetic Agent into Joints, Percutaneous Approach (ICD-10-PCS; 2020-05-19)
PROC: 3E0U33Z Introduction of Anti-inflammatory into Joints, Percutaneous Approach (ICD-10-PCS; principal; 2020-05-19 09:00)
DX: M53.3 Sacrococcygeal disorders, not elsewhere classified (principal); M54.5 Low back pain
CPT/HCPCS: 76000-TC-FY

== ENCOUNTER 2020-07-28 04:29 | Day surgery (SDC) | payer OTHER ==
[2020-07-24 16:19] VITALS: BMI 31.4
[2020-07-28] MEDS ORDERED: LIDOCAINE HCL 1%, 10 MG/ML (20ML VIAL) ONE (07:39)
[2020-07-28] MEDS ORDERED: BETAMET ACET/BETAMET NA PH 30 MG/5 ML VIAL ONE (07:40)
[2020-07-28] MEDS ORDERED: BUPIVACAINE HCL/PF 0.25% (2.5MG/ML) 10 ML VIAL ONE (07:41)
[2020-07-28] MEDS ORDERED: KETOROLAC TROMETHAMINE 30 MG/1 ML VIAL ONE ×2 (09:23→10:39)
[2020-07-28] MEDS ORDERED: LIDOCAINE HCL/PF 2% SDV 5ML VIAL ONE (09:23)
[2020-07-28] MEDS ORDERED: PROPOFOL 20 ML ONE ×2 (09:24)
[2020-07-28] MEDS ORDERED: DEXAMETHASONE SOD PHOSPHATE/PF 10 MG/ML SDV ONE (09:57)
[2020-07-28] MEDS ORDERED: BUPIVACAINE HCL/PF 0.5% (5 MG/ML) 30 ML VIAL IJ ONE (09:58)
[2020-07-28] MEDS ORDERED: LIDOCAINE HCL 1%, 10 MG/ML (20ML VIAL) INF ONE (09:58)
[2020-07-28] MEDS ORDERED: DEXAMETHASONE SOD PHOSPHATE 10 MG/1 ML VIAL IM ONE (09:58)
[2020-07-28 13:18] VITALS: PULSE 88
[2020-07-28 13:26] VITALS: BP 106/86; TEMP 97.8
== END 2020-07-28 13:15 | disposition home or self-care (01) ==
LOC: JASU-SURG 04:29
PROVIDERS: ATTEND Physical Medicine & Rehabilitation
PROC: 3E0T3TZ Introduction of Destructive Agent into Peripheral Nerves and Plexi, Percutaneous Approach (ICD-10-PCS; principal; 2020-07-28 09:00)
PROC: BR16ZZZ Fluoroscopy of Lumbar Facet Joint(s) (ICD-10-PCS; 2020-07-28 09:00)
DX: M47.817 Spondylosis without myelopathy or radiculopathy, lumbosacral region (principal); M54.5 Low back pain; M53.3 Sacrococcygeal disorders, not elsewhere classified
CPT/HCPCS: J1100

== ENCOUNTER 2020-08-21 11:18 | Emergency (ER) | payer OTHER ==
[2020-08-21 11:23] VITALS: BP 126/58; PULSE 76; TEMP 98; BMI 30.7
== END 2020-08-21 13:06 | disposition home or self-care (01) ==
LOC: FER 11:18
DX: M79.661 Pain in right lower leg (principal)
CPT/HCPCS: 93971-TC; 99283-25

== ENCOUNTER 2020-08-25 05:24 | Day surgery (SDC) | payer OTHER ==
[2020-08-24 12:08] VITALS: BMI 30.7
[2020-08-25] MEDS ORDERED: methylPREDNISolone ACET (DEPO) 40 MG/1 ML VIAL ONE (07:21)
[2020-08-25] MEDS ORDERED: LIDOCAINE HCL 1%, 10 MG/ML (20ML VIAL) ONE ×2 (07:21→07:23)
[2020-08-25] MEDS ORDERED: BUPIVACAINE HCL/PF 0.25% (2.5MG/ML) 10 ML VIAL ONE (07:21)
[2020-08-25] MEDS ORDERED: BETAMET ACET/BETAMET NA PH 30 MG/5 ML VIAL ONE (07:21)
[2020-08-25] MEDS ORDERED: DEXAMETHASONE SOD PHOSPHATE/PF 10 MG/ML SDV ONE (07:31)
[2020-08-25] MEDS ORDERED: LIDOCAINE HCL/PF 2% SDV 5ML VIAL ONE (09:42)
[2020-08-25] MEDS ORDERED: PROPOFOL 20 ML ONE (09:42)
[2020-08-25] MEDS ORDERED: DEXAMETHASONE SOD PHOSPHATE 10 MG/1 ML VIAL IM ONE (09:51)
[2020-08-25] MEDS ORDERED: LIDOCAINE HCL 1% PRESERVATIVE FREE - 30ML VIAL IJ ONE (09:51)
[2020-08-25] MEDS ORDERED: BUPIVACAINE HCL/PF 0.5% (5 MG/ML) 30 ML VIAL IJ ONE (09:51)
[2020-08-25 13:38] VITALS: BP 120/73; PULSE 94; TEMP 97.8
== END 2020-08-25 11:20 | disposition home or self-care (01) ==
LOC: JASU-SURG 05:24
PROVIDERS: ATTEND Physical Medicine & Rehabilitation
PROC: 3E0R33Z Introduction of Anti-inflammatory into Spinal Canal, Percutaneous Approach (ICD-10-PCS; 2020-08-25)
PROC: B01BYZZ Fluoroscopy of Spinal Cord using Other Contrast (ICD-10-PCS; 2020-08-25)
PROC: 3E0R3BZ Introduction of Anesthetic Agent into Spinal Canal, Percutaneous Approach (ICD-10-PCS; principal; 2020-08-25 09:00)
DX: M54.16 Radiculopathy, lumbar region (principal); M54.5 Low back pain
CPT/HCPCS: 76000-TC-FY; J1100

== ENCOUNTER 2020-11-26 05:25 | Day surgery (SDC) | payer OTHER ==
[2020-11-25 15:35] VITALS: BMI 30.7
[2020-11-26] MEDS ORDERED: LIDOCAINE HCL/PF 1% SDV 5ML VIAL ONE (08:41)
[2020-11-26] MEDS ORDERED: BETAMET ACET/BETAMET NA PH 30 MG/5 ML VIAL ONE (08:42)
[2020-11-26] MEDS ORDERED: BUPIVACAINE HCL/PF 0.25% (2.5MG/ML) 10 ML VIAL ONE (08:42)
[2020-11-26] MEDS ORDERED: KETOROLAC TROMETHAMINE 30 MG/1 ML VIAL ONE (10:32)
[2020-11-26] MEDS ORDERED: IOHEXOL 180 MG/1 ML ML IJ ONE (10:43)
[2020-11-26] MEDS ORDERED: BETAMET ACET/BETAMET NA PH 30 MG/5 ML VIAL IM ONE (10:43)
[2020-11-26] MEDS ORDERED: BUPIVACAINE HCL/PF 0.25% (2.5MG/ML) 10 ML VIAL IJ ONE (10:44)
[2020-11-26] MEDS ORDERED: LIDOCAINE HCL 1% PRESERVATIVE FREE - 30ML VIAL IJ ONE (10:45)
[2020-11-26] MEDS ORDERED: ONDANSETRON 4 MG/2 ML VIAL IVPUSH PRN (11:46)
[2020-11-26] MEDS ORDERED: oxyCODONE HCL 5 MG TABLET PO PRN ×2 (11:46)
[2020-11-26] MEDS ORDERED: ACETAMINOPHEN 325 MG TABLET (FP) PO PRN (11:46)
[2020-11-26] MEDS ORDERED: LACTATED RINGERS SOLUTION 1,000 ML IV SCH (12:00)
[2020-11-26 12:14] VITALS: BP 123/75; PULSE 79; TEMP 98.5
== END 2020-11-26 12:10 | disposition home or self-care (01) ==
LOC: JASU-SURG 05:25
PROVIDERS: ATTEND Physical Medicine & Rehabilitation
PROC: 3E0R33Z Introduction of Anti-inflammatory into Spinal Canal, Percutaneous Approach (ICD-10-PCS; 2020-11-26)
PROC: 3E0R3BZ Introduction of Anesthetic Agent into Spinal Canal, Percutaneous Approach (ICD-10-PCS; principal; 2020-11-26 10:32)
DX: M54.16 Radiculopathy, lumbar region (principal); M54.5 Low back pain
CPT/HCPCS: 76000-TC-FY

== ENCOUNTER 2021-03-08 04:26 | Day surgery (SDC) | payer OTHER ==
[2021-03-04 16:30] VITALS: BMI 30.7
[~2021-03-08 04:26] MED LIST changes: -BETAMET ACET/BETAMET NA PH 30 MG/5 ML VIAL IM ONE; +DEXAMETHASONE SOD PHOSPHATE 4 MG/1 ML VIAL NR ONE; -LIDOCAINE HCL 1%, 10 MG/ML (20ML VIAL) INF ONE; +LIDOCAINE HCL 1%, 10 MG/ML (20ML VIAL) NR ONE
[2021-03-08] MEDS ORDERED: DEXAMETHASONE SOD PHOSPHATE 4 MG/1 ML VIAL ONE (07:05)
[2021-03-08] MEDS ORDERED: BUPIVACAINE HCL/PF 0.25% (2.5MG/ML) 10 ML VIAL ONE (07:05)
[2021-03-08] MEDS ORDERED: MIDAZOLAM HCL 2 MG/2 ML SINGLE DOSE VIAL ONE (07:35)
[2021-03-08] MEDS ORDERED: LIDOCAINE HCL/PF 1% SDV 5ML VIAL ONE (07:38)
[2021-03-08] MEDS ORDERED: PROPOFOL 20 ML ONE (07:39)
[2021-03-08] MEDS ORDERED: DEXAMETHASONE SOD PHOSPHATE 10 MG/1 ML VIAL ONE (08:55)
[2021-03-08] MEDS ORDERED: LIDOCAINE HCL 1%, 10 MG/ML (20ML VIAL) NR ONE (08:58)
[2021-03-08] MEDS ORDERED: IOHEXOL 180 MG/1 ML ML IJ ONE (08:59)
[2021-03-08] MEDS ORDERED: BUPIVACAINE HCL/PF 0.25% (2.5MG/ML) 10 ML VIAL IJ ONE (09:02)
[2021-03-08] MEDS ORDERED: DEXAMETHASONE SOD PHOSPHATE 10 MG/1 ML VIAL IM ONE (09:02)
[2021-03-08 09:24] VITALS: TEMP 98.6
[2021-03-08 13:09] VITALS: BP 153/86; PULSE 80
== END 2021-03-08 10:55 | disposition home or self-care (01) ==
LOC: JASU-SURG 04:26
PROVIDERS: ATTEND Physical Medicine & Rehabilitation
PROC: 3E0R33Z Introduction of Anti-inflammatory into Spinal Canal, Percutaneous Approach (ICD-10-PCS; 2021-03-08)
PROC: B01BYZZ Fluoroscopy of Spinal Cord using Other Contrast (ICD-10-PCS; 2021-03-08)
PROC: 3E0R3BZ Introduction of Anesthetic Agent into Spinal Canal, Percutaneous Approach (ICD-10-PCS; principal; 2021-03-08 08:30)
DX: M54.16 Radiculopathy, lumbar region (principal); M54.5 Low back pain
CPT/HCPCS: 76000-TC-FY; J1100

== ENCOUNTER 2021-06-14 08:39 | Day surgery (SDC) | payer OTHER ==
[2021-06-14 13:32] VITALS: BMI 30.4
[2021-06-14] MEDS ORDERED: MIDAZOLAM HCL 2 MG/2 ML SINGLE DOSE VIAL ONE (13:49)
[2021-06-14] MEDS ORDERED: PROPOFOL 20 ML ONE ×2 (13:50)
[2021-06-14] MEDS ORDERED: LIDOCAINE HCL/PF 1% SDV 5ML VIAL ONE (13:56)
[2021-06-14] MEDS ORDERED: BUPIVACAINE HCL/PF 0.75% 10 ML VIAL ONE (13:56)
[2021-06-14] MEDS ORDERED: LIDOCAINE HCL 1% PRESERVATIVE FREE - 30ML VIAL IJ ONE ×2 (13:59→14:27)
[2021-06-14] MEDS ORDERED: BUPIVACAINE HCL/PF 0.75% 10 ML VIAL NR ONE ×2 (13:59→14:27)
[2021-06-14] MEDS ORDERED: IOHEXOL 180 MG/1 ML ML IJ ONE (14:00)
[2021-06-14] MEDS ORDERED: DEXAMETHASONE SOD PHOSPHATE 10 MG/1 ML VIAL ONE (14:22)
[2021-06-14] MEDS ORDERED: DEXAMETHASONE SOD PHOSPHATE 10 MG/1 ML VIAL IVPB ONE ×2 (14:24→14:27)
[2021-06-14 17:10] VITALS: BP 134/84; PULSE 94; TEMP 97.8
== END 2021-06-14 16:45 | disposition home or self-care (01) ==
LOC: JASU-SURG 08:39
PROVIDERS: ATTEND Physical Medicine & Rehabilitation
PROC: 3E0R33Z Introduction of Anti-inflammatory into Spinal Canal, Percutaneous Approach (ICD-10-PCS; 2021-06-14)
PROC: B01BYZZ Fluoroscopy of Spinal Cord using Other Contrast (ICD-10-PCS; 2021-06-14)
PROC: 3E0T3BZ Introduction of Anesthetic Agent into Peripheral Nerves and Plexi, Percutaneous Approach (ICD-10-PCS; 2021-06-14)
PROC: 3E0R3BZ Introduction of Anesthetic Agent into Spinal Canal, Percutaneous Approach (ICD-10-PCS; principal; 2021-06-14 14:30)
DX: M47.26 Other spondylosis with radiculopathy, lumbar region (principal); M54.59 Other low back pain
CPT/HCPCS: 76000-TC-FY; C9803; J1100; U0003; U0005

== ENCOUNTER 2021-07-21 13:15 | Inpatient (IN) | payer OTHER ==
[2021-07-21] MEDS ORDERED: ALPRAZolam 0.25 MG TABLET PO ONE (13:38)
[2021-07-21] MEDS ORDERED: ALPRAZolam 0.25 MG TABLET ONE ×2 (13:38→13:39)
[2021-07-21 14:02] LABS: BASO % 0.8 % (0-2.0); EOS % 3.2 % (0-4.5); HEMATOCRIT 35.3 % (32.4-45.2); HEMOGLOBIN 11.7 GM/dL (10.7-15.3); LYMPH % 18.7 % (8-40); MCHC 33.2 g/dl (32.0-36.0); MEAN CELL VOLUME 84.5 fl (80-96); MEAN PLT VOLUME 7.8 fl (7.5-11.1); MONO % 8.1 % (3.8-10.2); NEUT % 69.2 % (42.8-82.8); PLATELET COUNT 256 10^3/uL (134-434); RBC 4.17 M/mm3 (3.60-5.2); RDW 14.8 % (11.6-15.6); WHITE BLOOD COUNT 8.1 K/mm3 (4.0-10.0)
[2021-07-21] MEDS ORDERED: FUROSEMIDE 40 MG/4 ML INJECTABLE VIAL IVPUSH ONE (14:04)
[2021-07-21 14:14] LABS: PROTHROMBIN TIME (PATIENT) 11.5 SEC (9.7-13.0)
[2021-07-21 14:21] LABS: CALCIUM 9.6 mg/dL (8.5-10.1)
[2021-07-21 14:22] LABS: ALBUMIN 3.8 g/dl (3.4-5.0); BLOOD UREA NITROGEN 28.7 mg/dL (7-18)
[2021-07-21 14:26] LABS: BILIRUBIN,TOTAL 0.8 mg/dL (0.2-1)
[2021-07-21 14:27] LABS: TOT PROT 6.8 g/dl (6.4-8.2)
[2021-07-21 14:30] LABS: N-TERMINAL BNP 95.4 pg/ml (5-125)
[2021-07-21] MEDS ORDERED: oxyCODONE HCL 5 MG TABLET PO PRN (18:50)
[2021-07-21] MEDS ORDERED: SENNOSIDES 8.6MG TABLET (FP) PO PRN (19:11)
[2021-07-21] MEDS ORDERED: ACETAMINOPHEN 325 MG TABLET (FP) PO PRN (20:45)
[2021-07-21] MEDS: LIDOCAINE 5% TOPICAL PATCH TP SCH (20:49)
[2021-07-21] MEDS ORDERED: PARoxetine HCL 10 MG TABLET ONE (21:22)
[2021-07-21] MEDS: ZOLPIDEM TARTRATE 5 MG TABLET PO PRN (21:25)
[2021-07-21] MEDS: SENNOSIDES 8.6MG TABLET (FP) PO SCH (21:25)
[2021-07-21] MEDS: POLYETHYLENE GLYCOL (HEALTHYLAX) 3350 17 GM PACKET PO SCH (21:25)
[2021-07-21] MEDS: ACETAMINOPHEN 325 MG TABLET (FP) PO PRN (21:25)
[2021-07-21] MEDS: oxyCODONE HCL 5 MG TABLET PO PRN (21:26)
[2021-07-21] MEDS: PARoxetine HCL 20 MG TABLET PO SCH (21:29)
[2021-07-21] MEDS: LIDOCAINE PATCH REMOVAL MC SCH (21:48)
[2021-07-22 03:36] VITALS: BMI 40.1
[2021-07-22] MEDS: ACETAMINOPHEN 325 MG TABLET (FP) PO PRN ×4 (03:39→21:46)
[2021-07-22] MEDS: oxyCODONE HCL 5 MG TABLET PO PRN ×4 (03:40→21:46)
[2021-07-22 08:03] LABS: HEMATOCRIT 32.2 % (32.4-45.2); HEMOGLOBIN 10.9 GM/dL (10.7-15.3); MCH 28.6 pg (25.7-33.7); MCHC 33.8 g/dl (32.0-36.0); MEAN CELL VOLUME 84.7 fl (80-96); MEAN PLT VOLUME 7.4 fl (7.5-11.1); PLATELET COUNT 206 10^3/uL (134-434); RDW 14.8 % (11.6-15.6); WHITE BLOOD COUNT 5.7 K/mm3 (4.0-10.0)
[2021-07-22 08:12] LABS: BLOOD UREA NITROGEN 23.8 mg/dL (7-18)
[2021-07-22 08:13] LABS: ALBUMIN 3.4 g/dl (3.4-5.0); CALCIUM 8.8 mg/dL (8.5-10.1); MAGNESIUM 2.1 mg/dL (1.8-2.4)
[2021-07-22 08:16] LABS: CREATININE 0.8 mg/dL (0.55-1.3); PHOSPHOROUS 3.7 mg/dL (2.5-4.9)
[2021-07-22 08:17] LABS: BILIRUBIN,TOTAL 0.9 mg/dL (0.2-1); TOT PROT 6.1 g/dl (6.4-8.2)
[2021-07-22] MEDS: POLYETHYLENE GLYCOL (HEALTHYLAX) 3350 17 GM PACKET PO SCH ×2 (09:53→21:45)
[2021-07-22] MEDS: ENOXAPARIN NA (PORCINE) 40 MG/0.4 ML DISP.SYRIN SQ SCH (09:53)
[2021-07-22] MEDS: LIDOCAINE 5% TOPICAL PATCH TP SCH (09:54)
[2021-07-22] MEDS ORDERED: FUROSEMIDE 40 MG/4 ML INJECTABLE VIAL IVPUSH SCH (10:00)
[2021-07-22 11:24] LABS: EPI CELLS 14 /uL (0-25.1); HYALINE CASTS 0 /uL (0-3.1); PH,URINE 7.5 (5.0-8.0); URINE APPEARANCE CLEAR; URINE BACTERIA 4533 /uL (0-1359); URINE BILIRUBIN NEGATIVE (NEGATIVE); URINE COLOR YELLOW; URINE GLUCOSE (UA) NEGATIVE (NEGATIVE); URINE KETONE NEGATIVE (NEGATIVE); URINE LEUK ESTERASE TRACE (NEGATIVE); URINE NITRITE NEGATIVE (NEGATIVE); URINE PROTEIN NEGATIVE (NEGATIVE); URINE RBC 2 /uL (0-23.9); URINE UROBILINOGEN 0.2 mg/dL (0.2-1.0); URINE WBC 18 /uL (0-25.8)
[2021-07-22] MEDS: LISINOPRIL 20 MG TABLET PO SCH (16:32)
[2021-07-22] MEDS ORDERED: PARoxetine HCL 10 MG TABLET ONE (21:42)
[2021-07-22] MEDS: ZOLPIDEM TARTRATE 5 MG TABLET PO PRN (21:45)
[2021-07-22] MEDS: FAMOTIDINE 20 MG TABLET PO SCH (21:45)
[2021-07-22] MEDS: PARoxetine HCL 20 MG TABLET PO SCH (21:45)
[2021-07-22] MEDS: SENNOSIDES 8.6MG TABLET (FP) PO SCH (21:46)
[2021-07-22] MEDS: LIDOCAINE PATCH REMOVAL MC SCH (22:00)
[2021-07-23] MEDS: oxyCODONE HCL 5 MG TABLET PO PRN ×4 (03:46→23:31)
[2021-07-23] MEDS: ACETAMINOPHEN 325 MG TABLET (FP) PO PRN ×4 (03:47→23:32)
[2021-07-23] MEDS: FUROSEMIDE 40 MG/4 ML INJECTABLE VIAL IVPUSH SCH ×2 (05:59→15:29)
[2021-07-23 09:01] LABS: HEMATOCRIT 33.1 % (32.4-45.2); MCH 28.2 pg (25.7-33.7); MCHC 33.3 g/dl (32.0-36.0); MEAN CELL VOLUME 84.8 fl (80-96); MEAN PLT VOLUME 7.7 fl (7.5-11.1); PLATELET COUNT 212 10^3/uL (134-434); RDW 14.8 % (11.6-15.6); WHITE BLOOD COUNT 6.1 K/mm3 (4.0-10.0)
[2021-07-23 09:16] LABS: CALCIUM 8.5 mg/dL (8.5-10.1)
[2021-07-23 09:17] LABS: ALBUMIN 3.5 g/dl (3.4-5.0); BLOOD UREA NITROGEN 18.4 mg/dL (7-18)
[2021-07-23 09:19] LABS: CREATININE 0.8 mg/dL (0.55-1.3)
[2021-07-23 09:21] LABS: BILIRUBIN,TOTAL 0.8 mg/dL (0.2-1); TOT PROT 6.2 g/dl (6.4-8.2)
[2021-07-23] MEDS: POLYETHYLENE GLYCOL (HEALTHYLAX) 3350 17 GM PACKET PO SCH ×2 (10:37→22:00)
[2021-07-23] MEDS: LISINOPRIL 20 MG TABLET PO SCH (10:37)
[2021-07-23] MEDS: ENOXAPARIN NA (PORCINE) 40 MG/0.4 ML DISP.SYRIN SQ SCH (10:37)
[2021-07-23] MEDS ORDERED: MEROPENEM 1 GM in DEXTROSE 5%-WATER 100 ML IVPB SCH (13:45)
[2021-07-23] MEDS: LIDOCAINE 5% TOPICAL PATCH TP SCH (15:30)
[2021-07-23] MEDS ORDERED: DEXTROSE 5%-WATER 100 ML IVPB ONE (15:36)
[2021-07-23] MEDS ORDERED: MEROPENEM 1 GM VIAL (RESTRICTED TO ID) IVPB ONE (15:36)
[2021-07-23] MEDS: MEROPENEM 1 GM in DEXTROSE 5%-WATER 100 ML IVPB SCH ×2 (15:37→17:32)
[2021-07-23] MEDS ORDERED: SODIUM CHLORIDE 100 ML IVPB ONE ×2 (18:27→23:26)
[2021-07-23] MEDS ORDERED: AMPICILLIN SODIUM 2 GM VIAL ONE ×2 (18:27→23:26)
[2021-07-23] MEDS: AMPICILLIN - 2 GM in SODIUM CHLORIDE 100 ML IVPB SCH ×2 (18:43→23:32)
[2021-07-23] MEDS ORDERED: PARoxetine HCL 10 MG TABLET ONE (21:55)
[2021-07-23] MEDS: SENNOSIDES 8.6MG TABLET (FP) PO SCH (22:00)
[2021-07-23] MEDS: ZOLPIDEM TARTRATE 5 MG TABLET PO PRN (22:00)
[2021-07-23] MEDS: PARoxetine HCL 20 MG TABLET PO SCH (22:00)
[2021-07-23] MEDS: FAMOTIDINE 20 MG TABLET PO SCH (22:00)
[2021-07-23] MEDS: LIDOCAINE PATCH REMOVAL MC SCH (22:05)
[2021-07-24] MEDS: oxyCODONE HCL 5 MG TABLET PO PRN ×4 (04:11→21:38)
[2021-07-24] MEDS: ACETAMINOPHEN 325 MG TABLET (FP) PO PRN ×2 (04:12→17:03)
[2021-07-24] MEDS ORDERED: AMPICILLIN SODIUM 2 GM VIAL ONE ×4 (05:48→23:27)
[2021-07-24] MEDS ORDERED: SODIUM CHLORIDE 100 ML IVPB ONE ×4 (05:48→23:27)
[2021-07-24] MEDS: FUROSEMIDE 40 MG/4 ML INJECTABLE VIAL IVPUSH SCH (06:00)
[2021-07-24] MEDS: AMPICILLIN - 2 GM in SODIUM CHLORIDE 100 ML IVPB SCH ×4 (06:04→23:48)
[2021-07-24 08:08] LABS: HEMATOCRIT 34.3 % (32.4-45.2); HEMOGLOBIN 11.3 GM/dL (10.7-15.3); MCH 28.1 pg (25.7-33.7); MCHC 32.8 g/dl (32.0-36.0); MEAN CELL VOLUME 85.5 fl (80-96); MEAN PLT VOLUME 8.1 fl (7.5-11.1); PLATELET COUNT 233 10^3/uL (134-434); RBC 4.02 M/mm3 (3.60-5.2); RDW 14.6 % (11.6-15.6); WHITE BLOOD COUNT 8.8 K/mm3 (4.0-10.0)
[2021-07-24 08:18] LABS: BLOOD UREA NITROGEN 17.6 mg/dL (7-18)
[2021-07-24 08:24] LABS: CREATININE 0.9 mg/dL (0.55-1.3)
[2021-07-24] MEDS: POLYETHYLENE GLYCOL (HEALTHYLAX) 3350 17 GM PACKET PO SCH ×2 (10:01→21:37)
[2021-07-24] MEDS: LISINOPRIL 20 MG TABLET PO SCH (10:01)
[2021-07-24] MEDS: LIDOCAINE 5% TOPICAL PATCH TP SCH (10:01)
[2021-07-24] MEDS: ENOXAPARIN NA (PORCINE) 40 MG/0.4 ML DISP.SYRIN SQ SCH (10:01)
[2021-07-24] MEDS: CLOTRIMAZOLE/BETAMET DIPROP 15 GM TUBE TP SCH ×2 (11:31→21:34)
[2021-07-24] MEDS: FUROSEMIDE 20 MG TABLET (FP) PO SCH (13:17)
[2021-07-24] MEDS ORDERED: PARoxetine HCL 10 MG TABLET ONE (21:20)
[2021-07-24] MEDS: LIDOCAINE PATCH REMOVAL MC SCH (21:34)
[2021-07-24] MEDS: PARoxetine HCL 20 MG TABLET PO SCH (21:35)
[2021-07-24] MEDS: FAMOTIDINE 20 MG TABLET PO SCH (21:35)
[2021-07-24] MEDS: ZOLPIDEM TARTRATE 5 MG TABLET PO PRN (21:36)
[2021-07-24] MEDS: SENNOSIDES 8.6MG TABLET (FP) PO SCH (21:36)
[2021-07-25] MEDS: ACETAMINOPHEN 325 MG TABLET (FP) PO PRN ×3 (03:00→18:14)
[2021-07-25] MEDS: oxyCODONE HCL 5 MG TABLET PO PRN ×5 (03:01→22:14)
[2021-07-25] MEDS ORDERED: SODIUM CHLORIDE 100 ML IVPB ONE (05:32)
[2021-07-25] MEDS ORDERED: AMPICILLIN SODIUM 2 GM VIAL ONE (05:32)
[2021-07-25] MEDS: FUROSEMIDE 20 MG TABLET (FP) PO SCH ×2 (05:47→13:43)
[2021-07-25] MEDS: AMPICILLIN - 2 GM in SODIUM CHLORIDE 100 ML IVPB SCH (05:47)
[2021-07-25 08:29] LABS: BASO % 0.6 % (0-2.0); EOS % 4.7 % (0-4.5); HEMATOCRIT 32.7 % (32.4-45.2); HEMOGLOBIN 10.9 GM/dL (10.7-15.3); LYMPH % 20.5 % (8-40); MCH 28.5 pg (25.7-33.7); MCHC 33.3 g/dl (32.0-36.0); MEAN CELL VOLUME 85.6 fl (80-96); MEAN PLT VOLUME 8.1 fl (7.5-11.1); MONO % 9.8 % (3.8-10.2); NEUT % 64.4 % (42.8-82.8); PLATELET COUNT 220 10^3/uL (134-434); RBC 3.82 M/mm3 (3.60-5.2); RDW 14.7 % (11.6-15.6); WHITE BLOOD COUNT 6.3 K/mm3 (4.0-10.0)
[2021-07-25 08:37] LABS: ALBUMIN 3.4 g/dl (3.4-5.0); CALCIUM 8.5 mg/dL (8.5-10.1)
[2021-07-25 08:41] LABS: CREATININE 0.8 mg/dL (0.55-1.3)
[2021-07-25 08:42] LABS: BILIRUBIN,TOTAL 0.7 mg/dL (0.2-1)
[2021-07-25] MEDS: POLYETHYLENE GLYCOL (HEALTHYLAX) 3350 17 GM PACKET PO SCH ×2 (10:55→22:10)
[2021-07-25] MEDS: LISINOPRIL 20 MG TABLET PO SCH (10:55)
[2021-07-25] MEDS: ENOXAPARIN NA (PORCINE) 40 MG/0.4 ML DISP.SYRIN SQ SCH (10:55)
[2021-07-25] MEDS: CLOTRIMAZOLE/BETAMET DIPROP 15 GM TUBE TP SCH ×2 (10:55→22:09)
[2021-07-25] MEDS: LIDOCAINE 5% TOPICAL PATCH TP SCH (10:56)
[2021-07-25] MEDS: AMOXICILLIN 500 MG CAPSULE (FP) PO SCH ×2 (13:43→22:10)
[2021-07-25] MEDS ORDERED: PARoxetine HCL 10 MG TABLET ONE (22:03)
[2021-07-25] MEDS: ZOLPIDEM TARTRATE 5 MG TABLET PO PRN (22:08)
[2021-07-25] MEDS: LIDOCAINE PATCH REMOVAL MC SCH (22:09)
[2021-07-25] MEDS: PARoxetine HCL 20 MG TABLET PO SCH (22:09)
[2021-07-25] MEDS: FAMOTIDINE 20 MG TABLET PO SCH (22:09)
[2021-07-25] MEDS: SENNOSIDES 8.6MG TABLET (FP) PO SCH (22:10)
[2021-07-26] MEDS: ACETAMINOPHEN 325 MG TABLET (FP) PO PRN ×3 (00:21→18:48)
[2021-07-26] MEDS: oxyCODONE HCL 5 MG TABLET PO PRN ×5 (02:39→22:47)
[2021-07-26] MEDS: FUROSEMIDE 20 MG TABLET (FP) PO SCH ×2 (06:47→14:42)
[2021-07-26] MEDS: AMOXICILLIN 500 MG CAPSULE (FP) PO SCH ×3 (06:47→22:07)
[2021-07-26 08:05] LABS: BASO % 0.6 % (0-2.0); EOS % 5.2 % (0-4.5); HEMOGLOBIN 11.7 GM/dL (10.7-15.3); LYMPH % 21.6 % (8-40); MCH 28.5 pg (25.7-33.7); MCHC 33.6 g/dl (32.0-36.0); MEAN CELL VOLUME 84.8 fl (80-96); MEAN PLT VOLUME 7.7 fl (7.5-11.1); MONO % 10.2 % (3.8-10.2); NEUT % 62.4 % (42.8-82.8); PLATELET COUNT 236 10^3/uL (134-434); RBC 4.12 M/mm3 (3.60-5.2); RDW 14.9 % (11.6-15.6); WHITE BLOOD COUNT 6.8 K/mm3 (4.0-10.0)
[2021-07-26 08:23] LABS: CALCIUM 9.1 mg/dL (8.5-10.1)
[2021-07-26 08:24] LABS: BLOOD UREA NITROGEN 15.7 mg/dL (7-18); MAGNESIUM 2.2 mg/dL (1.8-2.4)
[2021-07-26 08:27] LABS: CREATININE 0.7 mg/dL (0.55-1.3); PHOSPHOROUS 3.6 mg/dL (2.5-4.9)
[2021-07-26] MEDS: LISINOPRIL 20 MG TABLET PO SCH (10:45)
[2021-07-26] MEDS: LIDOCAINE 5% TOPICAL PATCH TP SCH (10:45)
[2021-07-26] MEDS: ENOXAPARIN NA (PORCINE) 40 MG/0.4 ML DISP.SYRIN SQ SCH (10:45)
[2021-07-26] MEDS: POLYETHYLENE GLYCOL (HEALTHYLAX) 3350 17 GM PACKET PO SCH ×2 (10:48→22:07)
[2021-07-26] MEDS: CLOTRIMAZOLE/BETAMET DIPROP 15 GM TUBE TP SCH ×2 (10:59→22:09)
[2021-07-26] MEDS: ZOLPIDEM TARTRATE 5 MG TABLET PO PRN (22:06)
[2021-07-26] MEDS: SENNOSIDES 8.6MG TABLET (FP) PO SCH (22:06)
[2021-07-26] MEDS: PARoxetine HCL 20 MG TABLET PO SCH (22:07)
[2021-07-26] MEDS: LIDOCAINE PATCH REMOVAL MC SCH (22:09)
[2021-07-26] MEDS: FAMOTIDINE 20 MG TABLET PO SCH (22:50)
[2021-07-27] MEDS ORDERED: BENZOCAINE/MENTH/CETYLPYRD CL 1 EACH LOZENGE MM PRN (01:13)
[2021-07-27] MEDS: BACITRACIN 15 GM TUBE TOPICAL OINTMENT TP SCH ×2 (02:00→12:36)
[2021-07-27] MEDS: oxyCODONE HCL 5 MG TABLET PO PRN ×4 (02:43→15:29)
[2021-07-27] MEDS: AMOXICILLIN 500 MG CAPSULE (FP) PO SCH ×2 (06:44→13:46)
[2021-07-27] MEDS: FUROSEMIDE 20 MG TABLET (FP) PO SCH ×2 (06:45→13:46)
[2021-07-27] MEDS: ACETAMINOPHEN 325 MG TABLET (FP) PO PRN ×2 (06:45→15:32)
[2021-07-27] MEDS: LISINOPRIL 20 MG TABLET PO SCH (10:51)
[2021-07-27] MEDS: LIDOCAINE 5% TOPICAL PATCH TP SCH (10:51)
[2021-07-27] MEDS: POLYETHYLENE GLYCOL (HEALTHYLAX) 3350 17 GM PACKET PO SCH (10:51)
[2021-07-27] MEDS: ENOXAPARIN NA (PORCINE) 40 MG/0.4 ML DISP.SYRIN SQ SCH (10:51)
[2021-07-27] MEDS: CLOTRIMAZOLE/BETAMET DIPROP 15 GM TUBE TP SCH (12:37)
[2021-07-27 14:41] VITALS: BP 134/81; PULSE 93; TEMP 98.1
== END 2021-07-27 17:30 | disposition home or self-care (01) | DRG 291 ==
LOC: JER 13:15 → JERBED 15:24 → J4S 18:56
PROVIDERS: ADMIT Internal Medicine; ATTEND Internal Medicine
DX: I11.0 Hypertensive heart disease with heart failure (principal); I50.33 Acute on chronic diastolic (congestive) heart failure; N39.0 Urinary tract infection, site not specified; M51.26 Other intervertebral disc displacement, lumbar region; M54.9 Dorsalgia, unspecified; K21.9 Gastro-esophageal reflux disease without esophagitis; F41.8 Other specified anxiety disorders; E04.1 Nontoxic single thyroid nodule; R09.02 Hypoxemia; E87.70 Fluid overload, unspecified; R32 Unspecified urinary incontinence; B95.2 Enterococcus as the cause of diseases classified elsewhere
CPT/HCPCS: 36415; 71045-TC-FY; 71275-TC; 72148-TC; 74177-TC; 80048; 80053; 81003; 82550; 83036; 83735; 83880; 84100; 84443; 84484; 85025; 85027; 85379; 85610; 87086; 87186; 93005; 93010; 93306-TC; 93970-TC; 94761; 97116-GP; 97161-GP; 99285-25; C9803; Q9967; U0003; U0005

== ENCOUNTER 2022-02-07 04:15 | Day surgery (SDC) | payer OTHER ==
[2022-02-04 09:07] VITALS: BMI 30.3
[~2022-02-07 04:15] MED LIST changes: -BUPIVACAINE HCL/PF 0.25% (2.5MG/ML) 10 ML VIAL IJ ONE; +BUPIVACAINE HCL/PF 0.5% (5MG/ML) 10 ML VIAL IJ ONE; +DEXAMETHASONE SOD PHOSPHATE 10 MG/1 ML VIAL IVPUSH ONE; -DEXAMETHASONE SOD PHOSPHATE 4 MG/1 ML VIAL NR ONE; -IOHEXOL 180 MG/1 ML ML IJ ONE; -LIDOCAINE HCL 1%, 10 MG/ML (20ML VIAL) NR ONE
[2022-02-07] MEDS ORDERED: BUPIVACAINE HCL/PF 0.25% (2.5MG/ML) 10 ML VIAL ONE (07:36)
[2022-02-07] MEDS ORDERED: BUPIVACAINE HCL/PF 0.5% (5MG/ML) 10 ML VIAL ONE (07:37)
[2022-02-07] MEDS ORDERED: LIDOCAINE HCL/PF 1% SDV 5ML VIAL ONE (07:38)
[2022-02-07] MEDS ORDERED: DEXAMETHASONE SOD PHOSPHATE 10 MG/1 ML VIAL ONE (07:39)
[2022-02-07] MEDS ORDERED: MIDAZOLAM HCL 2 MG/2 ML SINGLE DOSE VIAL ONE (09:05)
[2022-02-07] MEDS ORDERED: PROPOFOL 60 ML ONE (09:06)
[2022-02-07] MEDS ORDERED: LIDOCAINE HCL 1% PRESERVATIVE FREE - 30ML VIAL IJ ONE (09:30)
[2022-02-07] MEDS ORDERED: BUPIVACAINE HCL/PF 0.5% (5MG/ML) 10 ML VIAL IJ ONE (09:49)
[2022-02-07] MEDS ORDERED: DEXAMETHASONE SOD PHOSPHATE 10 MG/1 ML VIAL IVPUSH ONE (09:50)
[2022-02-07] MEDS ORDERED: oxyCODONE HCL 10 MG SUSTAINED ACTING TABLET ONE (10:12)
[2022-02-07] MEDS ORDERED: oxyCODONE HCL 5 MG TABLET PO ONE (10:30)
[2022-02-07 11:39] VITALS: RESP 18
[2022-02-07 14:38] VITALS: BP 120/70; PULSE 89; TEMP 97.9
== END 2022-02-07 14:07 | disposition home or self-care (01) ==
LOC: JASU-SURG 04:15
PROVIDERS: ATTEND Physical Medicine & Rehabilitation
PROC: BR16YZZ Fluoroscopy of Lumbar Facet Joint(s) using Other Contrast (ICD-10-PCS; 2022-02-07)
PROC: 3E0T3TZ Introduction of Destructive Agent into Peripheral Nerves and Plexi, Percutaneous Approach (ICD-10-PCS; principal; 2022-02-07 09:00)
DX: M54.16 Radiculopathy, lumbar region (principal)
CPT/HCPCS: 76000-TC-FY; J1100

== ENCOUNTER 2023-05-15 04:10 | Day surgery (SDC) | payer OTHER ==
[2023-05-12 14:33] VITALS: BMI 29.8
[2023-05-15 08:47] VITALS: RESP 20
[2023-05-15] MEDS ORDERED: FENTANYL CITRATE/PF 50 MCG/ML VIAL ONE (10:01)
[2023-05-15] MEDS ORDERED: ACETAMINOPHEN INJECTION 100 ML IVPB ONE (10:01)
[2023-05-15] MEDS ORDERED: ONDANSETRON 4 MG/2 ML VIAL ONE (10:01)
[2023-05-15] MEDS ORDERED: PROPOFOL 20 ML ONE (10:02)
[2023-05-15] MEDS ORDERED: MIDAZOLAM HCL 2 MG/2 ML SINGLE DOSE VIAL ONE (10:02)
[2023-05-15] MEDS ORDERED: LIDOCAINE 1% P/F 10 MG/ML VIAL INF ONE (10:27)
[2023-05-15] MEDS ORDERED: BUPIVACAINE HCL/PF 0.5% (5 MG/ML) 30 ML VIAL IJ ONE (10:27)
[2023-05-15] MEDS ORDERED: DEXAMETHASONE SOD PHOSPHATE 10 MG/1 ML VIAL IVPUSH ONE (10:28)
[2023-05-15 15:18] VITALS: BP 117/72; PULSE 69; TEMP 98
== END 2023-05-15 16:37 | disposition home or self-care (01) ==
LOC: JASU-SURG 04:10
PROVIDERS: ATTEND Physical Medicine & Rehabilitation
PROC: 015B3ZZ Destruction of Lumbar Nerve, Percutaneous Approach (ICD-10-PCS; principal; 2023-05-15 09:30)
DX: M54.89 Other dorsalgia (principal)
CPT/HCPCS: 36415; 76000-TC-FY; 84436; 84480; J1100

== ENCOUNTER 2023-07-10 06:00 | Day surgery (SDC) | payer OTHER ==
[2023-07-10 08:13] VITALS: BMI 30.3
[2023-07-10] MEDS ORDERED: MIDAZOLAM HCL 2 MG/2 ML SINGLE DOSE VIAL ONE (14:03)
[2023-07-10] MEDS ORDERED: IOHEXOL 180 MG/1 ML ML IJ ONE (14:25)
[2023-07-10] MEDS ORDERED: LIDOCAINE HCL 1% PRESERVATIVE FREE - 30ML VIAL IJ ONE (14:25)
[2023-07-10] MEDS ORDERED: DEXAMETHASONE SOD PHOSPHATE 10 MG/1 ML VIAL IVPUSH ONE (14:25)
[2023-07-10] MEDS ORDERED: BUPIVACAINE HCL/PF 0.25% (2.5MG/ML) 10 ML VIAL IJ ONE (14:25)
[2023-07-10 15:08] VITALS: RESP 20
[2023-07-10 17:17] VITALS: BP 110/60; PULSE 90; TEMP 97.6
== END 2023-07-10 17:00 | disposition home or self-care (01) ==
LOC: JASU-SURG 06:00
PROVIDERS: ATTEND Physical Medicine & Rehabilitation
PROC: 3E0R3BZ Introduction of Anesthetic Agent into Spinal Canal, Percutaneous Approach (ICD-10-PCS; 2023-07-10)
PROC: 3E0R33Z Introduction of Anti-inflammatory into Spinal Canal, Percutaneous Approach (ICD-10-PCS; principal; 2023-07-10 13:15)
DX: M54.16 Radiculopathy, lumbar region (principal); M54.50 Low back pain, unspecified
CPT/HCPCS: 76000-TC-FY; 82962; J1100